=== PATIENT | male | born 1980 | race Caucasian/White ===

== ENCOUNTER 2025-02-11 01:40 | Emergency (ER) | payer OTHER, SELFPAY ==
--- NOTE | 2025-02-11 | ECG_ITS ---
Test Reason : ANXIETY Blood Pressure : */* mmHG Vent. Rate : 73 BPM Atrial Rate : 73 BPM P-R Int : 208 ms QRS Dur : 92 ms QT Int : 396 ms P-R-T Axes : 40 21 20 degrees QTcB Int : 436 ms Normal sinus rhythm Normal ECG When compared with ECG of 18-Jun-2012 10:55, No significant changes seen Referred By: Generic ED Physician Electronically Signed By: Estiven Hoffman
[2025-02-11 01:51] VITALS: BP 151/82; PULSE 86; RESP 20; TEMP 36.7; O2SAT 99; BMI 36.7
[2025-02-11 02:33] LABS: Cannabinoid Screen Urine Not Detected (Not Detect)
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
== END 2025-02-11 02:46 | disposition left against medical advice (07) ==
PROVIDERS: Emergency Provider Emergency Medicine; PCP Internal Medicine
DX: F41.1 Generalized anxiety disorder (principal); Z53.21 Procedure and treatment not carried out due to patient leaving prior to being seen by health care provider
CPT/HCPCS: 80307; 93005; 99281; 99283

== ENCOUNTER → 2025-02-11 02:08 | Outpatient (BNV) | payer OTHER, SELFPAY | PROVIDERS: Emergency Provider Emergency Medicine; PCP Internal Medicine; Visit Provider Internal Medicine Cardiovascular Disease | DX: F41.9 Anxiety disorder, unspecified (principal) | CPT/HCPCS: 93010 ==